=== PATIENT | female | born 1975 | race Caucasian/White ===

== ENCOUNTER 2016-04-20 02:02 | Emergency (ER) | payer MEDICAID | END 2016-04-20 02:35 | disposition home or self-care (01) | LOC: D.ER 02:02 | DX: E11.40 Type 2 diabetes mellitus with diabetic neuropathy, unspecified (principal); K21.9 Gastro-esophageal reflux disease without esophagitis ==

== ENCOUNTER 2016-08-23 18:48 | Emergency (ER) | payer MEDICAID ==
[2016-08-23 19:29] LABS: BASOPHILS 0.1 % (0-2); EOSINOPHILS 2.9 % (0-7); HEMATOCRIT 43.4 % (36.0-48.0); HEMOGLOBIN 13.8 g/dL (12-16); IMMATURE GRANULOCYTES 0.3 % (0-5); LYMPHOCYTES 28.2 % (15-50); MCH 25.7 pg (26.0-34.0); MCHC 31.8 g/dL (31.0-37.0); MCV 80.7 fL (80.0-100.0); MEAN PLATELET VOLUME 10.4 fL (7.4-10.4); MONOCYTES 4.5 % (2-11); PLATELET COUNT 229 10x3/uL (130-400); RBC 5.38 10x6/uL (4.00-5.40); RDW 14.6 % (11.5-14.5); WBC 14.6 10x3/uL (4.8-10.8)
[2016-08-23 19:46] LABS: ALBUMIN 3.4 g/dL (3.4-5.0); ALKALINE PHOSPHATASE 28 U/L (46-116); ALT (SGPT) 46 U/L (10-68); BILIRUBIN - TOTAL 0.39 mg/dL (0.2-1.3); CALC OSMOLALITY 273 mosm/kg (275-300); CALCIUM 9.7 mg/dL (8.5-10.1); CARBON DIOXIDE 31.6 mmol/L (21.0-32.0); CHLORIDE - SERUM 95 mmol/L (98-107); CREATININE - SERUM 0.9 mg/dL (0.6-1.3); POTASSIUM - SERUM 3.5 mmol/L (3.5-5.1); PROTEIN - SERUM 7.7 g/dL (6.4-8.2); SODIUM 134 mmol/L (136-145); UREA NITROGEN 10 mg/dL (7-18); eGFR NON AFRICAN AMERICAN 73 mL/min (90-120)
[2016-08-23 19:49] LABS: GLUCOSE 222 mg/dL (74-106)
[2016-08-23 19:57] LABS: CKMB 0.8 U/L (0.0-3.6); CREATINE KINASE 72 UL (21-215)
[2016-08-23 19:58] LABS: TROPONIN-I < 0.017 ng/mL (0.000-0.060)
== END 2016-08-23 22:30 | disposition home or self-care (01) ==
LOC: D.ER 18:48
PROVIDERS: Emergency Medicine
DX: R07.89 Other chest pain (principal); K21.9 Gastro-esophageal reflux disease without esophagitis

== ENCOUNTER 2017-02-05 10:24 | Emergency (ER) | payer MEDICAID | END 2017-02-05 12:00 | disposition home or self-care (01) | LOC: D.ER 10:24 | DX: H69.92 Unspecified Eustachian tube disorder, left ear (principal); K21.9 Gastro-esophageal reflux disease without esophagitis; E11.40 Type 2 diabetes mellitus with diabetic neuropathy, unspecified ==

== ENCOUNTER 2018-08-24 04:32 | Emergency (ER) | payer MEDICAID ==
[~2018-08-24] VITALS: Ht 175.3 cm; Wt 65.8 kg
[2018-08-24 04:35] VITALS: BP 141/90; Ht 175.3 cm; Wt 65.8 kg
[2018-08-24] MEDS ORDERED: NEURONTIN 400400 MG PO (04:37)
[2018-08-24] MEDS ORDERED: ULTRAM50 MG PO (04:37)
[2018-08-24] MEDS ORDERED: LISINOPRIL-HCT1 EAC8 PO (04:38)
== END 2018-08-24 04:58 | disposition home or self-care (01) ==
LOC: D.ER 04:32
DX: G89.29 Other chronic pain (principal); E11.40 Type 2 diabetes mellitus with diabetic neuropathy, unspecified; I10 Essential (primary) hypertension

== ENCOUNTER 2018-08-24 16:04 | Emergency (ER) | payer MEDICAID ==
[~2018-08-24] VITALS: Ht 175.3 cm; Wt 111.4 kg
[~2018-08-24 16:04] MED LIST: LISINOPRIL-HCT1 EAC8 PO; NEURONTIN 400400 MG PO; ULTRAM50 MG PO
[2018-08-24 16:10] VITALS: Ht 175.3 cm; Wt 111.4 kg
[2018-08-24 18:18] VITALS: BP 112/60
== END 2018-08-24 18:19 | disposition home or self-care (01) ==
LOC: D.ER 16:04
DX: G89.29 Other chronic pain (principal); I10 Essential (primary) hypertension